=== PATIENT | male | born 1950 | race Caucasian/White ===

== ENCOUNTER → 2017-03-02 | Outpatient (CLI) | payer MEDICARE, OTHER | LOC: RAD 14:19 | DX: R06.02 Shortness of breath (principal) | CPT/HCPCS: 71020 ==

== ENCOUNTER → 2017-03-30 | Outpatient (CLI) | payer MEDICARE, OTHER | LOC: HEART 5 07:12 | DX: R07.9 Chest pain, unspecified (principal); I25.10 Atherosclerotic heart disease of native coronary artery without angina pectoris; I10 Essential (primary) hypertension | CPT/HCPCS: 78452; 93306; A9502; J2785 ==

== ENCOUNTER → 2021-05-15 | Outpatient (CLI) | payer MEDICARE, OTHER ==
[~2021-05-15] MED LIST: B12 ACTIVE1000 MCG PO; COREG6.25 MG PO; ECOTRIN325 MG PO; FLOMAX 0.4 MG0.4 MG PO; GLUCOPHAGE500 MG PO; MIRAFIBER PO; POTASSIUM99 M1 PO; PRINIVIL20 MG PO; PROSCAR 5 MG TAB5 MG PO; THERAGRAN M TAB1 EA PO; ZOCOR20 MG PO; ZYLOPRIM 300 M300 MG PO
== END ==
LOC: KOH-I 11:11
DX: M50.322 Other cervical disc degeneration at C5-C6 level (principal); M48.02 Spinal stenosis, cervical region
CPT/HCPCS: 70450; 72050

== ENCOUNTER 2021-06-28 19:18 | Emergency (ER) | payer MEDICARE, OTHER ==
[2021-06-28 19:52] LABS: HEMOGLOBIN 13.9 gm/dl (14.0-17.5); RED BLOOD COUNT 4.47 M/UL (4.20-5.50)
[2021-06-28 20:11] LABS: BUN/CREATININE RATIO 18 (0-10)
== END 2021-06-28 21:35 | disposition home or self-care (01) ==
LOC: ER1 19:18
PROVIDERS: Family Medicine
DX: S00.211A Abrasion of right eyelid and periocular area, initial encounter (principal); E11.9 Type 2 diabetes mellitus without complications; I11.9 Hypertensive heart disease without heart failure; W19.XXXA Unspecified fall, initial encounter
CPT/HCPCS: 70450; 71045; 80053; 81001; 82550; 82553; 83874; 84484; 85025; 93005; 99284

== ENCOUNTER → 2021-07-17 | Outpatient (CLI) | payer MEDICARE, OTHER | LOC: HEART 5 07:30 | DX: R55 Syncope and collapse (principal) | CPT/HCPCS: 93306; 93880 ==

== ENCOUNTER → 2021-12-03 | Outpatient (CLI) | payer MEDICARE, OTHER | LOC: CATH 09:44 | DX: I95.1 Orthostatic hypotension (principal); R42 Dizziness and giddiness; M15.9 Polyosteoarthritis, unspecified; E11.42 Type 2 diabetes mellitus with diabetic polyneuropathy ==